=== PATIENT | male | born 1970 | race Two or more races ===

== ENCOUNTER 2018-01-03 10:25 | Outpatient (CLI) | payer BC | END 2018-01-03 23:59 | disposition home or self-care (01) | LOC: WOU 10:25 | PROVIDERS: ATTEND Specialist | DX: T25.222A Burn of second degree of left foot, initial encounter (principal); T24.211A Burn of second degree of right thigh, initial encounter; X10.0XXA Contact with hot drinks, initial encounter; Y92.89 Other specified places as the place of occurrence of the external cause; J45.20 Mild intermittent asthma, uncomplicated; Z72.0 Tobacco use | CPT/HCPCS: A6209; A6402 ==

== ENCOUNTER 2018-01-09 08:34 | Outpatient (CLI) | payer BC | END 2018-01-09 23:59 | disposition home or self-care (01) | LOC: WOU 08:34 | PROVIDERS: ATTEND Podiatrist Foot & Ankle Surgery | DX: T24.211A Burn of second degree of right thigh, initial encounter (principal); T25.222A Burn of second degree of left foot, initial encounter; X10.0XXA Contact with hot drinks, initial encounter; Y92.89 Other specified places as the place of occurrence of the external cause; J45.20 Mild intermittent asthma, uncomplicated | CPT/HCPCS: 16020; A6402 ×2; Z7610 ==

== ENCOUNTER 2018-01-17 12:13 | Outpatient (CLI) | payer BC | END 2018-01-17 23:59 | disposition home or self-care (01) | LOC: WOU 12:13 | PROVIDERS: ATTEND Specialist | DX: T24.211D Burn of second degree of right thigh, subsequent encounter (principal); T25.222D Burn of second degree of left foot, subsequent encounter; X10.0XXD Contact with hot drinks, subsequent encounter; Z72.0 Tobacco use; Z83.3 Family history of diabetes mellitus; J45.20 Mild intermittent asthma, uncomplicated | CPT/HCPCS: A6402; G0463; Z7610 ==

== ENCOUNTER 2018-01-31 09:10 | Outpatient (CLI) | payer BC | END 2018-01-31 23:59 | disposition home or self-care (01) | LOC: WOU 09:10 | PROVIDERS: ATTEND Specialist | DX: T25.222D Burn of second degree of left foot, subsequent encounter (principal); T31.0 Burns involving less than 10% of body surface; X10.0XXD Contact with hot drinks, subsequent encounter; J45.20 Mild intermittent asthma, uncomplicated | CPT/HCPCS: G0463; Z7610 ==